=== PATIENT | male | born 1980 | race Caucasian/White ===

== ENCOUNTER 2016-09-21 14:19 | Emergency (ER) | payer OTHER ==
[~2016-09-21] VITALS: Wt 80.0 kg
[2016-09-21] MEDS ORDERED: DIPHENHYDRAMINE 50 MG INJ IM ONE (15:00)
[2016-09-21] MEDS ORDERED: DIPHTH/TET/ACEL PERTUSS (ADULT) 0.5 ML VIAL IM* ONE (15:00)
[2016-09-21] MEDS ORDERED: IBUPROFEN 600 MG TAB PO ONE (15:00)
[2016-09-21] MEDS ORDERED: IBUP-1542 PO (15:44)
--- NOTE | 2016-09-21 16:38 | RADRPT ---
PROCEDURE: XR Hand. CLINICAL INDICATION: Possible fracture TECHNIQUE: Three views of the right hand were obtained. COMPARISON: No prior studies are available for comparison. FINDINGS: The bones of the hand appear intact, with no evidence of fracture, dislocation, or subluxation. The joint spaces are preserved. There is a remote ununited ulnar styloid fracture. Healed post fracture form of the fifth metacarpal. Bone mineralization is normal. No significant soft tissue swelling i s seen. IMPRESSION: 1. No acute osseous abnormality. 2. Healed post-traumatic deformity of the fifth metacarpal and remote ununited ulnar styloid fractu re versus ossicle. RPTAT: EE .Macario Laird MD, Date Time Electronically viewed and signed by .Macario Laird MD, MD on 09/21/2016 16:38 .d/
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
== END 2016-09-21 17:52 | disposition home or self-care (01) ==
LOC: E/R 14:19
DX: S60.221A Contusion of right hand, initial encounter (principal); S63.91XA Sprain of unspecified part of right wrist and hand, initial encounter; F15.20 Other stimulant dependence, uncomplicated; H10.212 Acute toxic conjunctivitis, left eye; F17.210 Nicotine dependence, cigarettes, uncomplicated; Y08.89XA Assault by other specified means, initial encounter; Z23 Encounter for immunization
CPT/HCPCS: 73130; 90471; 90715; 96372; 99284; J1200